=== PATIENT | male | born 1995 | race Caucasian/White ===

== ENCOUNTER 2016-07-04 03:38 | Emergency (ER) | payer OTHER ==
[~2016-07-04] VITALS: Ht 170.2 cm; Wt 90.9 kg
[2016-07-04] MEDS ORDERED: KETOROLAC 60MG/2ML VIAL IM ONE (04:30)
[2016-07-04 05:04] VITALS: BP 125/69
== END 2016-07-04 05:41 | disposition home or self-care (01) ==
LOC: ER 03:40
DX: S39.012A Strain of muscle, fascia and tendon of lower back, initial encounter (principal); X58.XXXA Exposure to other specified factors, initial encounter; Y93.89 Activity, other specified; Y99.8 Other external cause status; Y92.89 Other specified places as the place of occurrence of the external cause
CPT/HCPCS: 96372; 99283; J1885